=== PATIENT | male | born 1990 | race Caucasian/White ===

== ENCOUNTER 2017-12-24 22:25 | Emergency (ER) | payer MEDICAID ==
[~2017-12-24] VITALS: Ht 185.4 cm; Wt 99.8 kg
[2017-12-24 22:32] VITALS: BP 153/95
--- NOTE | 2017-12-24 22:40 | NUR ---
PT. AMBULATED TO ER BED 1
--- NOTE | 2017-12-24 22:45 | NUR ---
27/M CAME IN W C/O SMALL LAC TO LT CHEEKBONE S/P FALLING OVER A FENCE TONIGHT. PT DENIES HEAD INJURY/LOC, GCS 15, AOX4, REPORTS HE HAS BEEN DRINKING SEVERAL BEERS TONIGHT. SMALL LAC TO LT CHEEKBONE NOTED, BLEEDING CONTROLLED AT THIS TIME. DENIES OTHER PMH/RX/OTC
[2017-12-25] MEDS ORDERED: LIDOCAINE/EPI 2% 1:100000 20 ML VIAL INJ ONE (00:05)
[2017-12-25] MEDS ORDERED: BACITRACIN OINT 500 UNITS/GM PKT TP ONE ×2 (01:02→01:05)
[2017-12-25 01:25] VITALS: BP 117/98
== END 2017-12-25 01:25 | disposition home or self-care (01) ==
LOC: MED 22:25
DX: S01.112A Laceration without foreign body of left eyelid and periocular area, initial encounter (principal); W19.XXXA Unspecified fall, initial encounter; Y93.89 Activity, other specified; Y92.89 Other specified places as the place of occurrence of the external cause; Y99.8 Other external cause status
CPT/HCPCS: 12013; 70150; 90471; 90715; 99284; J2001

== ENCOUNTER 2017-12-31 08:01 | Emergency (ER) | payer MEDICAID ==
[~2017-12-31] VITALS: Ht 185.4 cm; Wt 100.4 kg
[2017-12-31 08:12] VITALS: BP 156/92
--- NOTE | 2017-12-31 08:19 | NUR ---
PT PLACED IN CHAIR D
--- NOTE | 2017-12-31 08:23 | NUR ---
PT HERE FOR LEFT CHEEK AREA SUTURE REMOVAL, PLACED HERE ON Wednesday12/26/17. PT VERBALIZES HE RECEIVED A TETANUS SHOT THEN. SITE C/D/I, NO GROSS SWELLING OR DRAINAGE NOTED. PT DENIES ANY FEVERS/CHILLS. WAITING FOR ER MD PEREZ.
--- NOTE | 2017-12-31 08:33 | NUR ---
PER DR GRANT, TO NOT REMOVE SUTURES AT THIS TIME. PT WILL RETURN ON WEDNESDAY TO HAVE THEM REMOVED AND STERI STRIPS PLLIED THEN. BANDAID ONLY AT THIS TIME.
[2017-12-31 09:02] VITALS: BP 156/92
--- NOTE | 2017-12-31 09:02 | NUR ---
Patient discharged with v/s stable. Written and verbal after care instructions given and explained. Patient verbalized understanding. Ambulatory with steady gait. All questions addressed prior to discharge. Advised to follow up with PMD.
== END 2017-12-31 09:02 | disposition home or self-care (01) ==
LOC: MED 08:01
DX: S01.412D Laceration without foreign body of left cheek and temporomandibular area, subsequent encounter (principal); X58.XXXD Exposure to other specified factors, subsequent encounter
CPT/HCPCS: 99282

== ENCOUNTER 2018-01-02 17:44 | Emergency (ER) | payer MEDICAID ==
[~2018-01-02] VITALS: Ht 185.4 cm; Wt 99.8 kg
[2018-01-02 17:58] VITALS: BP 151/96
--- NOTE | 2018-01-02 18:33 | NUR ---
LAC REPAIR INTACT---SKIN DRY PINK CLEAN SUTURES INTACT---- OKAYED TO REMOVE
[2018-01-02 18:58] VITALS: BP 151/96
== END 2018-01-02 18:58 | disposition home or self-care (01) ==
LOC: MED 17:44
DX: S01.412D Laceration without foreign body of left cheek and temporomandibular area, subsequent encounter (principal); X58.XXXD Exposure to other specified factors, subsequent encounter
CPT/HCPCS: 99281